=== PATIENT | female | born 1950 | race American Indian/Alaskan Native ===

== ENCOUNTER 2020-10-18 06:04 | Day surgery (SDC) | payer MEDICARE | END 2020-10-18 11:15 | disposition home or self-care (01) | LOC: OR 06:04 | DX: I12.0 Hypertensive chronic kidney disease with stage 5 chronic kidney disease or end stage renal disease (principal); E11.22 Type 2 diabetes mellitus with diabetic chronic kidney disease; N18.6 End stage renal disease; E11.42 Type 2 diabetes mellitus with diabetic polyneuropathy; I48.20 Chronic atrial fibrillation, unspecified; E78.00 Pure hypercholesterolemia, unspecified; J45.909 Unspecified asthma, uncomplicated; G47.30 Sleep apnea, unspecified; E66.9 Obesity, unspecified; K21.9 Gastro-esophageal reflux disease without esophagitis; G93.40 Encephalopathy, unspecified; M19.90 Unspecified osteoarthritis, unspecified site; Z98.49 Cataract extraction status, unspecified eye; Z90.710 Acquired absence of both cervix and uterus; Z87.440 Personal history of urinary (tract) infections; Z98.890 Other specified postprocedural states; Z85.42 Personal history of malignant neoplasm of other parts of uterus; Z68.31 Body mass index [BMI] 31.0-31.9, adult; Z79.899 Other long term (current) drug therapy; Z79.4 Long term (current) use of insulin; Z79.01 Long term (current) use of anticoagulants | CPT/HCPCS: 36415; 36821; 64415; 80048; 82962; 85027; 85610; 85730; J0690; J1644; J2250; J2370; J2405; J2704; J3010; J7030; J7040 ==

== ENCOUNTER 2021-03-07 08:07 | Day surgery (SDC) | payer MEDICARE ==
[~2021-03-07 08:07] MED LIST: BUPIVACAINE/PF (0.5%) 5 MG/1 ML 30 ML VIAL INFILTRATI ONE; HEPARIN 10,000 UNIT/1 ML VIAL IV SCH; HEPARIN 10,000 UNITS/10 ML VIAL ONE; SODIUM CHLORIDE 0.9% 1000 ML 1,000 ML IV SCH; SODIUM CHLORIDE 0.9% 500 ML 500 ML ONE; ceFAZolin/STERILE WATER 2 GM/20 ML SYRINGE IV NR; propofoL 200 MG/20 ML VIAL IV ONE
--- NOTE | 2021-03-07 08:41 | Anesthesia Day of Surgery ---
Anesthesia Day of Surgery - Day of Surgery Patient Examined: Yes Patient H&P Reviewed: Yes Patient is NPO: Yes Beta Blockers: Yes
--- NOTE | 2021-03-07 08:41 | Anesthesia Consultation ---
Anesthesia Consult and Med Hx Date of service: 03/07/21 - Airway Anesthetic Teeth Evaluation: Edentulous ROM Head & Neck: Adequate Mental/Hyoid Distance: Adequate Mallampati Class: Class III Intubation Access Assessment: Possibly Difficult - Cardiac Exam Cardiac Exam: No Murmur (irregular rhythm, rate controlled) - Pre-Operative Health Status ASA Pre-Surgery Classification: ASA3 Proposed Anesthetic Plan: General - Pulmonary Hx Smoking: No Hx Asthma: Yes (no recent inhaler use) Hx Respiratory Symptoms: No Hx Pneumonia: No Hx Sleep Apnea: Yes - Cardiovascular System Hx Hypertension: Yes Hx Percutaneous Transluminal Coronary Angioplasty (PTCA): No Hx Cardia Arrhythmia: Yes (a-fib, last dose coumadin 03/06/21) Hx Pacemaker: No Hx Internal Defibrillator: No - Central Nervous System CVA: No - Endocrine Hx End Stage Renal Disease: Yes (last HD 03/06/21) Hx Liver Disease: No Hx Insulin Dependent Diabetes: Yes Hx Thyroid Disease: No - Hematic Hx Anemia: Yes - Other Systems Hx Obesity: Yes (BMI 33) - Additional Comments Anesthesia Medical History Comments: No hx anesthetic complications.
[2021-03-07 08:55] LABS: Hematocrit 31.7 % (30.3-42.9); Hemoglobin 10.4 gm/dl (10.1-14.3); Mean Corpuscular HGB Conc 33 % (30-34); Mean Corpuscular Volume 99 fl (79-97); Platelet Count 200 K/mm3 (140-440); Red Cell Distribution Width 16.8 % (13.2-15.2)
[2021-03-07] MEDS ORDERED: ONDANSETRON 4 MG/2 ML INJ IV PRN (09:00)
[2021-03-07] MEDS ORDERED: fentaNYL 100 MCG/2 ML INJ IV PRN (09:00)
[2021-03-07] MEDS ORDERED: HYDROcodone/ACETAMINOPHEN 5-325 MG TAB PO PRN (09:00)
[2021-03-07 09:17] LABS: Calcium 8.2 mg/dL (8.4-10.2)
[2021-03-07] MEDS ORDERED: LIDOCAINE (1%) 10 MG/1 ML VIAL 20 ML MDV ONE (09:24)
[2021-03-07] MEDS ORDERED: HYDROmorphone 1 MG/1 ML INJ ONE (09:37)
[2021-03-07] MEDS ORDERED: LIDOCAINE MPF (2%) 20 MG/1 ML VIAL 5 ML ONE (09:37)
[2021-03-07] MEDS ORDERED: BUPIVACAINE/PF (0.5%) 5 MG/1 ML 30 ML VIAL INFILTRATI ONE ×2 (10:15→10:29)
[2021-03-07] MEDS ORDERED: SODIUM CHLORIDE 0.9% IRR 1,500 ML BOTTLE IR ONE ×2 (10:15→10:29)
[2021-03-07] MEDS ORDERED: HEPARIN 10,000 UNITS/10 ML VIAL IV ONE ×2 (10:16→10:29)
[2021-03-07] MEDS ORDERED: SODIUM CHLORIDE 0.9% 500 ML IVPB IV ONE ×2 (10:16→10:29)
[2021-03-07] MEDS ORDERED: ALBUMIN HUMAN 5% (12.5 GM/250 ML) INJ IV ONE (11:15)
--- NOTE | 2021-03-07 11:51 | Operative Report ---
Operative Report Operative Report: Date of Procedure: 03/07/2021 Pre-operative Diagnosis: Complications of Dialysis Access Post-operative Diagnosis: Same Procedure(s): 1. Revision with Elevation of Left Brachiocephalic Arteriovenous Fistula Surgeon: Chidi Arana M.D. Machinist Job Setter: None Anesthesia: General Endotracheal Anesthesia EBL: Minimal Counts: Correct Complications: None Condition: Stable Findings: There is a palpable thrill in the AV access at the completion of the case. Specimen: None Indication: The patient is a 70-year-old female with a history of end-stage renal disease who is currently on hemodialysis through a left internal jugular permacath. She had creation of a left brachiocephalic arteriovenous fistula however the fistula has a tortuous course as well as being too deep for cannulation. She is in need with revision and elevation to assist with ease of cannulating the fistula. She was given the risk, benefits, and alternative procedures and consented to the procedure. Description of Procedure: The patient was brought to the operating room and laid in supine position. After timeout was performed general endotracheal esthesia was achieved and the patient's left arm was prepped and draped in normal sterile fashion. A longitudinal incision was created, just medial to the fistula, extending from the axillary crease to the antecubital crease. A combination of sharp dissection with Metzenbaums and cautery was used to carry the incision down to the fistula. The fistula was dissected circumferentially ensuring that all side branches were suture ligated with 3-0 silk ties and divided. Once the fistula had been divided circumferentially throughout the length of the incision a pocket was created, along the lateral aspect of the incision, between the dermis and subcutaneous layer. Once this pocket was created the fistula was placed in this layer. Hemostasis within the wound was achieved with a combination of manual pressure, cautery, and VistaSeal. Once hemostasis was achieved the wound was anesthetized with 0.5% Marcaine and closed in 2 layers using 3-0 Vicryl running fashion the deep dermal layer and 4-0 Monocryl in running fashion the subcuticular layer. The wound was then dressed with Dermabond. The patient tolerated the procedure well. All sponge, needle, and instrument counts were correct. The patient was taken to the recovery area in stable condition.
--- NOTE | 2021-03-07 11:53 | Short Stay Summary ---
Short Stay Documentation Date of service: 03/07/21 Narrative H&P: See H&P - History H&P: obtained from office - Allergies and Medications Current Medications: Allergies No Known Allergies Allergy (Verified 03/02/21 14:55) Home Medications Medication Instructions Recorded Confirmed Last Taken Type allopurinoL [Zyloprim] 100 mg PO QDAY 06/05/20 03/07/21 03/06/21 09:00 History Metoprolol [Lopressor TAB] 25 mg PO Q8HR #90 tablet 06/17/20 03/02/21 Unknown Rx Bumetanide 2 mg PO BID 10/12/20 03/07/21 03/06/21 17:00 History Oxycod/Apap 7.5 mg PO PRN PRN 10/12/20 03/02/21 10/17/20 09:00 History Warfarin 3 mg PO DAILY 10/12/20 03/07/21 03/06/21 09:00 History Calcium Acetate [Phoslo] 1,334 mg PO TID 03/02/21 03/07/21 03/06/21 18:00 History Simvastatin 10 mg PO DAILY 03/02/21 03/07/21 03/06/21 09:00 History Active Medications Hydrocodone Bitart/Acetaminophen (Hydrocodone/Acetaminophen 5-325 Mg Tab) 2 each PO ONCE PRN PRN Reason: Pain, Moderate (4-6) Stop: 03/07/21 18:00 Cefazolin Sodium (Cefazolin/Sterile Water 2 Gm/20 Ml Syringe) 2 gm IV PREOP NR Stop: 03/07/21 23:59 Fentanyl (Fentanyl 100 Mcg/2 Ml Inj) 50 mcg IV Q5MIN PRN PRN Reason: Pain , Severe (7-10) Stop: 03/07/21 18:00 Heparin Sodium (Porcine) (Heparin 10,000 Unit/1 Ml Vial) 5,000 unit IV PREOP FRANCISCO J Stop: 03/07/21 20:00 Sodium Chloride (Nacl 0.9% 1000 Ml) 1,000 mls @ 42 mls/hr IV DIRECT FRANCISCO J Stop: 03/07/21 23:59 Last Admin: 03/07/21 08:50 Dose: 42 mls/hr Documented by: Ondansetron HCl (Ondansetron 4 Mg/2 Ml Inj) 4 mg IV ONCE PRN PRN Reason: Nausea And Vomiting Stop: 03/07/21 17:00 - Brief post op/procedure progress note Date of procedure: 03/07/21 Pre-op diagnosis: Complications of Dialysis Access Post-op diagnosis: same Procedure: 1. Revision with Elevation of Left Brachiocephalic Arteriovenous Fistula Anesthesia: LY Surgeon: WALKER MONDRAGON Estimated blood loss: minimal Pathology: none Condition: stable - Disposition Condition at discharge: Good Disposition: 01 HOME / SELF CARE / HOMELESS Short Stay Discharge Plan Activity: other (No heavy lifting with left arm for 2 weeks.) Wound: open to air, keep clean and dry, other (Okay to wash the left arm incision with soap and water but do not soak in water for 2 weeks.) Follow up with: WALKER MONDRAGON MD [Staff Physician] - 14 Days Prescriptions: HYDROcodone/APAP 7.5-325 [[place] 7.5/325] 1 each PO Q6HR PRN #40 tablet PRN Reason: Pain
[2021-03-07] MEDS ORDERED: PHENYLEPHRINE/NS 1,000 MCG/10 ML SYRINGE (OR USE) IV ONE (12:05)
--- NOTE | 2021-03-07 14:29 | Post Anesthesia Evaluation ---
- Post Anesthesia Evaluation Patient Participated: Yes Airway Patent: Yes Stable Respiratory Function: Yes Nausea/Vomiting: No Temp > 96.8F: Yes Pain Manageable: Yes Adequeate Hydration: Yes Anesthesia Complications: No
[2021-03-07 18:54] VITALS: BP 111/48
== END 2021-03-07 08:08 | disposition home or self-care (01) ==
LOC: OR 08:07
PROVIDERS: ATTEND Surgery Vascular Surgery
DX: T82.590A Other mechanical complication of surgically created arteriovenous fistula, initial encounter (principal); Z20.822 Contact with and (suspected) exposure to COVID-19; I13.2 Hypertensive heart and chronic kidney disease with heart failure and with stage 5 chronic kidney disease, or end stage renal disease; E11.22 Type 2 diabetes mellitus with diabetic chronic kidney disease; N18.6 End stage renal disease; I50.9 Heart failure, unspecified; Z99.2 Dependence on renal dialysis; J44.9 Chronic obstructive pulmonary disease, unspecified; M19.90 Unspecified osteoarthritis, unspecified site; I48.91 Unspecified atrial fibrillation; E66.9 Obesity, unspecified; Z68.33 Body mass index [BMI] 33.0-33.9, adult; E78.00 Pure hypercholesterolemia, unspecified; Z79.899 Other long term (current) drug therapy; Z98.890 Other specified postprocedural states; Y83.8 Other surgical procedures as the cause of abnormal reaction of the patient, or of later complication, without mention of misadventure at the time of the procedure
CPT/HCPCS: 36415; 36832; 80048; 82962; 85027; 86850; 86900; 86901; J0690; J1170; J1644; J2370; J2704; J7030; J7040; P9045; U0003